=== PATIENT | female | born 1945 | race African-American/Black ===

== ENCOUNTER → 2017-03-10 | Outpatient (CLI) | payer OTHER ==
--- NOTE | 2017-03-10 13:19 | RAD ---
DATE: 03/10/2017 EXAM: DIGITAL SCREEN BILAT W/CAD HISTORY: Routine screening COMPARISON: 01/23/2015 This study was interpreted with the benefit of Computerized Aided Detection (CAD). FINDINGS: There are scattered fibroglandular densities in the breasts. No new or enlarging breast densities are seen. There are benign-appearing lymph node type densities projected over the left axillary tail region. There are scattered benign type microcalcifications in the breasts. A cluster of microcalcifications is now identified at the 12:00 location in the left breast. No other suspicious microcalcifications are seen. IMPRESSION: Left breast microcalcifications. Diagnostic mammograms to include magnification and straight medial lateral views is suggested for further evaluation. BI-RADS CATEGORY: 0 INCOMPLETE: NEEDS ADDITIONAL IMAGING EVALUATION AND/OR PRIOR MAMMOGRAMS FOR COMPARISON. RECOMMENDED FOLLOW-UP: ADD ADDITIONAL IMAGING PQRS compliance statement: Patient information was entered into a reminder system with a target due date for the next mammogram. Mammography is a sensitive method for finding small breast cancers, but it does not detect them all and is not a substitute for careful clinical examination. A negative mammogram does not negate a clinically suspicious finding and should not result in delay in biopsying a clinically suspicious abnormality. "Our facility is accredited by the [employer] Mammography [employer]."
== END | disposition home or self-care (01) ==
LOC: MAMMO 08:38
PROVIDERS: ATTEND Internal Medicine
DX: Z12.31 Encounter for screening mammogram for malignant neoplasm of breast (principal)
CPT/HCPCS: G0202; 77067

== ENCOUNTER → 2017-03-17 | Outpatient (CLI) | payer OTHER ==
--- NOTE | 2017-03-17 13:45 | RAD ---
DATE: 03/10/2017 EXAM: DIGITAL DIAGNOSTIC LT HISTORY: Suspicious screening study COMPARISON: 03/17/2017 This study was interpreted with the benefit of Computerized Aided Detection (CAD). FINDINGS: Additional views of the left breast confirm the presence of a cluster of microcalcifications at the 12:00 location. The magnification views demonstrate heterogeneity with some branching of these calcifications. DCIS is a possibility and stereotactic biopsy is suggested. IMPRESSION: Small cluster of suspicious microcalcifications in the left breast. Stereotactic biopsy is suggested for further evaluation. BI-RADS CATEGORY: 4 SUSPICIOUS ABNORMALITY- BIOPSY SHOULD BE CONSIDERED RECOMMENDED FOLLOW-UP: BIO BIOPSY RECOMMENDED Note: The findings were discussed with the patient at the time of the exam and she is aware of the recommendation for biopsy. PQRS compliance statement: Patient information was entered into a reminder system with a target due date for the next mammogram. Mammography is a sensitive method for finding small breast cancers, but it does not detect them all and is not a substitute for careful clinical examination. A negative mammogram does not negate a clinically suspicious finding and should not result in delay in biopsying a clinically suspicious abnormality. "Our facility is accredited by the [employer] Mamm[employer]."
== END | disposition home or self-care (01) ==
LOC: MAMMO 12:55
PROVIDERS: ATTEND Internal Medicine
DX: R92.8 Other abnormal and inconclusive findings on diagnostic imaging of breast (principal)
CPT/HCPCS: G0206; 77065

== ENCOUNTER → 2017-04-06 | Outpatient (CLI) | payer OTHER ==
[~2017-04-06] VITALS: Ht 157.5 cm; Wt 65.3 kg
[~2017-04-06] MED LIST: ATOR40TA59 PO; GABA-585 PO; LIDOCAINE 1% / SOD BICARB 8.4% 20 ML VIAL. IJ ONE; LIDOCAINE 2%/EPI 1:100,000 20 ML VIAL. IJ ONE; METF500T4 PO; MONT10TA9 PO; NIFE60TA16 PO; RAMI10CA PO
[2017-04-06 08:11] VITALS: BP 173/73
--- NOTE | 2017-04-11 08:36 | PATHOLOGY ---
PATHOLOGY REPORT * * * * * * * * FINAL DIAGNOSIS: Breast tissue, left, core needle biopsy: - Fibroadenomatoid change with coarse calcifications. - No evidence of atypia or malignancy. (Please see comment) COMMENT: The case is co-reviewed with Dr. Ariane Canales, who agrees with the diagnosis. (SKM:gisell; d/t: 04/08/2017) REPORT ELECTRONICALLY SIGNED BY: Charles Gray M.D. DATE/TIME: 04/11/2017 08:36 * * * * * * * * GROSS PATHOLOGY: Received in formalin labeled "Priscilla Smalls, left breast tissue," are multiple needle cores of yellow-alexandre fibrofatty tissue measuring 2.9 x 2.3 x 0.9 cm in aggregate dimensions. Also received is a plastic cassette containing multiple cores of yellow-alexandre fibrofatty tissue measuring 2.4 x 1.5 x 0.6 cm in aggregate dimensions. The tissue in the cassette is transferred to cassette A1, and the remaining tissue is submitted in its entirety in cassettes A2-A3. The cold ischemic time is 8 minutes. The total formalin fixation time is 36 hours and 53 minutes. (KAH; 04/07/2017) INITIAL CPT CODE(S): A; 16504 Professional services performed by [facility] [address] Technical services performed by [facility] at [address] [place] [address], [facility] [address] [address]. SPECIMEN(S) RECEIVED: A.Left breast tissue CLINICAL HISTORY: Abnormal mammogram, calcifications PATIENT: PRISCILLA SMALLS /AGE: 908/04/1945 (Age: 71) PATIENT #: [id number] ALT CASE #: SPECIMEN COLLECTION DATE: 04/06/2017 SPECIMEN RECEIVED DATE: 04/06/2017 [facility] - [address] [place] [address] - PHONE: [phone] * * * END OF REPORT * * *
== END | disposition home or self-care (01) ==
LOC: MAMMO 07:37
PROVIDERS: ATTEND Internal Medicine
DX: R92.8 Other abnormal and inconclusive findings on diagnostic imaging of breast (principal)
CPT/HCPCS: 19085; 77022; C1713; G0206; J3490; 88305; 77065

== ENCOUNTER → 2018-04-28 | Outpatient (CLI) | payer OTHER | END | disposition home or self-care (01) | LOC: MAMMO 14:18 | DX: Z12.31 Encounter for screening mammogram for malignant neoplasm of breast (principal) | CPT/HCPCS: 77063; 77067 ==

== ENCOUNTER → 2019-06-21 | Outpatient (CLI) | payer OTHER ==
[2017-04-06 08:11] VITALS: BP 173/73
[~2019-06-21] MED LIST changes: -LIDOCAINE 1% / SOD BICARB 8.4% 20 ML VIAL. IJ ONE; -LIDOCAINE 2%/EPI 1:100,000 20 ML VIAL. IJ ONE; +METF500T16 PO; -METF500T4 PO; +MONT10TA49 PO; -MONT10TA9 PO; -RAMI10CA PO; +RAMI10CA53 PO
--- NOTE | 2019-06-21 17:03 | KCIC ---
INDICATION: Osteoporosis screening. Postmenopausal evaluation COMPARISON: None. TECHNIQUE: Bone densitometry was performed through the lumbar spine and left proximal femur. FINDINGS: Lumbar Spine: L1-4 BMD: 1.03 T-Score: -0.2 Femoral Neck: BMD: 0.79 T-Score: -1.3 IMPRESSION: 1. Lumbar spine falls within the normal range. 2. Femoral neck falls within the osteopenic range. Electronically signed by: Israel Asif MD (06/21/2019 5:00 PM) [facility]
--- NOTE | 2019-06-21 17:20 | KCIC ---
Bilateral digital screening mammograms with 3-D tomosynthesis: Reason for examination: Routine screening. Comparison is made to previous studies dated 04/28/2018 and 03/10/2017. Bilateral mammograms in CC and oblique projections were obtained with 2-D imaging and 3-D tomosynthesis imaging on a Siemens Inspiration unit and reviewed on the workstation. Interpretation was made with the benefit of CAD. The skin and nipples show no abnormalities. No abnormal axillary lymph nodes are seen. The breast parenchyma shows scattered fatty and fibroglandular density. (Breast density: Category B.) There are small nodular parenchymal densities in the right breast which are stable. There are no new dominant masses, suspicious calcifications or architectural distortion. Benign calcifications are present. Impression: No evidence of malignancy. Recommend routine screening. BI-RAD Category 2: Benign. "Our facility is accredited by the [employer] Mammography [employer]." This patient's information has been entered into a reminder system for the patient to be notified with the results of her examination and a target date for the next mammogram. Electronically signed by: Yuliana Spears MD (06/21/2019 5:17 PM) [id number]
== END | disposition home or self-care (01) ==
LOC: KCIC DEXA 10:29
PROVIDERS: ATTEND Internal Medicine
DX: Z12.31 Encounter for screening mammogram for malignant neoplasm of breast (principal); Z13.820 Encounter for screening for osteoporosis; N64.89 Other specified disorders of breast; M85.88 Other specified disorders of bone density and structure, other site; N95.9 Unspecified menopausal and perimenopausal disorder
CPT/HCPCS: 77063; 77067; 77080